=== PATIENT | male | born 1960 | race Two or more races ===

== ENCOUNTER 2020-11-26 07:53 | Emergency (ER) | payer OTHER ==
[~2020-11-26] VITALS: Ht 177.8 cm; Wt 100.0 kg
[2020-11-26] MEDS ORDERED: METHYLPREDNISOLONE SOD SUCC 125 MG/2 ML VIAL IV ONE (08:45)
[2020-11-26] MEDS ORDERED: DIPHENHYDRAMINE 50MG/ML VIAL IV ONE (08:45)
[2020-11-26] MEDS ORDERED: FAMOTIDINE 20MG/2ML VIAL IV ONE (08:45)
[2020-11-26 08:48] LABS: BASOPHILS % 0.4 % (0.0-2.0); EOSINOPHILS % 0.5 % (0.0-5.0); HEMOGLOBIN. 13.9 g/dL (14.0-18.0); LYMPHOCYTES % 23.5 % (20.0-50.0); MEAN CORPUSCULAR HEMOGLOBIN 28.5 pg (28.0-32.0); MEAN CORPUSCULAR VOLUME 82.2 fL (80.0-94.0); MEAN PLATELET VOLUME 8.2 fl (7.4-10.4); MONOCYTES % 2.6 % (2.0-8.0); PLATELET 397 x1000/uL (130-400); RED BLOOD CELL COUNT 4.86 mill/uL (4.7-6.1); RED CELL DISTRIBUTION WIDTH 13.2 % (11.6-14.6)
[2020-11-26 08:53] LABS: CHLORIDE 102 mEq/L (98-107)
[2020-11-26 11:23] VITALS: BP 123/76
== END 2020-11-26 11:36 | disposition home or self-care (01) ==
LOC: ER 08:15 → EDBEDREQ 08:38 → EDBEDREQTM 09:23 → EDBEDREQ 09:23 → ENRESERV 10:13 → CANRESERV 10:13 → ER 11:36 → CANBEDREQ 16:05
DX: T78.3XXA Angioneurotic edema, initial encounter (principal); E11.9 Type 2 diabetes mellitus without complications; I10 Essential (primary) hypertension; E78.5 Hyperlipidemia, unspecified
CPT/HCPCS: 36415; 71045; 80053; 83880; 84484; 85025; 96374; 96375; 99284; J1200; J2930; J3490